=== PATIENT | female | born 2000 | race Caucasian/White ===

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

== ENCOUNTER 2023-05-06 16:20 | Inpatient (IN) ==
--- NOTE | 2023-05-06 16:26 | ED Triage Note ---
Date of Service May 06, 2023 Provider in Triage Author: Papo Whaley A History of Present Illness This patient was briefly evaluated while in triage. An abbreviated physical exam was performed. This patient is a 22-year-old Female who presents to the ED for evaluation of mouth pain. Went to dentist 3 weeks ago to have a tooth pull, and had novocaine injection. Has had issues opening mouth ever since that episode. Could not tolerate removal of the tooth. No fever. Saw PCP today and sent to ER for ct scan. Physical Exam Limited Triage Exam: VITALS: Vitals are noted on the nurse's note and reviewed by myself. Vital sign s stable. GENERAL: Well-developed, well-nourished, white female, who is in no acute distress and resting comfortably. Patient is cooperative with the examination. HEART: Regular rate and rhythm without murmurs gallops or rubs. LUNGS: Clear to auscultation bilaterally without wheezes, rales or rhonchi. No retractions or accessory muscle use. NEURO: Patient was alert and oriented to person place and time. CN II through XII grossly intact. Initial orders for labs and / or imaging were placed and patient was placed in the waiting area until a bed is available. Please see further documentation for the full ED course. MDM / Impression Impression Impression: Abscess of submandibular region, Trismus
--- NOTE | 2023-05-06 16:53 | Emergency Department Note ---
History of Present Illness General Chief complaint: Dental/Oral Stated complaint: NOVACANE IN RT BACK SIDE MOUTH, LOCK JAW Time Seen by Provider: 05/06/23 16:38 History of Present Illness Maximum Pain Intensity: 5 22-year-old female who presents to the emergency department for evaluation of lockjaw. Patient states that she broke her right lower molar a few weeks ago and was evaluated by [facility] for treatment. She states that they recommended extraction. She reports 3 weeks ago she presented to their office and attempted to pull the tooth. She states they numbed her with 4 shots of Novocaine but were unable to get her numb and subsequently unable to pull the tooth. She was placed on antibiotics for presumed infection. She states since the procedure she has been unable to open her jaw at all. She has not been able to eat solid foods for the last 3 weeks, she is tolerating liquids however. She was seen by her PCP last week who placed her on steroids for lockjaw which did help with some swelling underneath the area but once finishing on Saturday the swelling returned. She denies any dental pain when she clenches, fever/chills, nausea/vomiting. Denies difficulty swallowing, sore throat, neck or ear pain. She has not been on any antibiotics for the last 3 weeks. She reports being otherwise healthy without significant past medical history. No allergies to medications. She is up-to-date on her tetanus vaccination. Home Medications Medication Instructions Recorded Confirmed Type albuterol sulfate 90 mcg/actuation 2 puff inhalation Q4H PRN 07/31/21 05/06/23 Rx aerosol inhaler (ProAir HFA) shortness of breath or wheezing #8.5 grams acetaminophen 325 mg capsule 650 mg PO QID PRN Fever Or Pain 01/22/23 05/06/23 History (Tylenol) ibuprofen 200 mg capsule 400 mg PO Q6H PRN Fever Or Pain 01/22/23 05/06/23 History Allergies Allergy/AdvReac Type Severity Reaction Status Date / Time Penicillins Allergy Mild Unknown Verified 05/06/23 15:20 Past Med/Surg History Medical History Asthma Anxiety and depression Migraine, chronic, without aura Surgical History No history of previous surgery Family History Mother Adopted person Other Depression Dyslipidemia Gestational diabetes Hypertension Kidney disease Multiple gestation Social History Smoking Status: Never smoker Do You Dip or Chew Tobacco: No; Hx Alcohol Use: Yes Alcohol Intake Frequency Comment: socially Hx Substance Use: Yes Non-Prescribed Medications: Marijuana Preferred Language: Trinidadian current occupational status: employed Feels Safe at Home: Yes Physical Exam Vital Signs Vital Signs - 24 hr 05/06/23 16:24 Pulse Rate 84 Pulse Rhythm Regular Pulse Strength Normal Respiratory Rate 20 Respiratory Effort / Characteristics Non-Labored Spontaneous Respiratory Depth Normal Respiratory Pattern Regular Blood Pressure 113/73 Blood Pressure Mean 86 Blood Pressure Position Sitting Pulse Oximetry 96 Oxygen Delivery Method Room Air Sepsis Recent Fever Within 48 Hours No Sepsis New/Unexplained Change in Mental Status No Sepsis Action Taken by Nursing No Action Required Constitutional: alert and oriented x3. no acute distress. nontoxic HEENT: normocephalic, atraumatic. normal conjunctiva.PERRLA. EOM's grossly intact. TMs pearly mckeon without effusion. Pt unable to open/close at TMJ. submandibular swelling, no cellulitic changes Neck: neck is supple, nontender. Respiratory: lungs are clear to auscultation without wheezes, rhonchi, or rales bilaterally. equal chest rise. normal respiratory effort, no accessory muscle use. Cardiovascular: normal heart sounds without murmur. regular rate and rhythm. MSK: moves all 4 extremities spontaneously Psych:appropriate mood and affect. Course Administered Medications Discontinued Medications Clindamycin Phosphate (Cleocin/D5w) 900 mg in 50 mls @ 100 mls/hr IV NOW ONE Stop: 05/06/23 18:58 Last Admin: 05/06/23 19:13 Dose: 100 mls/hr Documented By: CRISELDA Sodium Chloride (Nss) 1,000 mls @ 999 mls/hr IV .Q1H1M ONE Stop: 05/06/23 19:50 Last Admin: 05/06/23 19:13 Dose: 999 mls/hr Documented By: CRISELDA Ioversol (Optiray 320 500ml) 88 ml IV ONCE ONE Stop: 05/06/23 17:55 Last Admin: 05/06/23 17:56 Dose: 88 ml Documented By: PREM Ketorolac Tromethamine (Ketorolac Tromethamine 15 Mg/Ml Vial) 15 mg IV NOW STA Stop: 05/06/23 18:15 Last Admin: 05/06/23 18:19 Dose: 15 mg Documented By: CARLOS ALBERTO Medical Decision Making Differential Diagnosis dental infection, dental abscess, TMJ dislocation, lockjaw, muscle spasm, nerve injury as well as other pathologies Laboratory Data Attestation: I reviewed the patient's lab results. 05/06/23 16:59 05/06/23 16:59 Lab Results 05/06/23 Range/Units 16:59 WBC 12.06 H (4.8-10.8) K/ul RBC 4.78 (4.20-5.40) M/uL Hgb 14.3 (12.0-16.0) g/dl Hct 43.0 (37.0-47.0) % MCV 90.0 (80.0-100.0) fL MCH 29.9 (25.0-34.0) pg MCHC 33.3 (32.0-36.0) g/dL RDW Std Deviation 39.4 (36.4-46.3) fL RDW Coeff of [place] 11.9 (11.5-14.5) % Plt Count 252 (130-400) K/uL MPV 10.8 (9.4-12.4) fL Immature Gran % (Auto) 0.4 % Neut % (Auto) 76.0 % Lymph % (Auto) 11.9 % [place] % (Auto) 10.5 % Eos % (Auto) 0.8 % Baso % (Auto) 0.4 % Neut # (Auto) 9.15 H (1.40-6.50) K/uL Lymph # (Auto) 1.44 (1.20-3.40) K/uL [place] # (Auto) 1.27 H (0.11-0.59) K/uL Eos # (Auto) 0.10 (0.00-0.50) K/uL Baso # (Auto) 0.05 (0.00-0.20) K/uL Immature Gran # (Auto) 0.05 (0.01-0.20) K/uL Sodium 134 L (136-145) mmol/L Potassium 4.4 (3.5-5.1) mmol/L Chloride 101 (98-107) mmol/L Carbon Dioxide 26 (21-32) mmol/L Anion Gap 7 (3-11) BUN 11 (6-23) mg/dl Creatinine 0.69 (0.6-1.2) mg/dl Est Cr Clr Drug Dosing 112.3 ml/min Est GFR ( Amer) 143.2 ml/min Est GFR (Non-Af Amer) 123.6 ml/min BUN/Creatinine Ratio 15.9 (10-20) Glucose 94 (70-99(Fasting)) mg/dl Calcium 9.6 (8.6-10.3) mg/dl Total Bilirubin 0.7 (0.2-1.0) mg/dl AST 10 L (13-39) U/L ALT 7 (7-52) U/L Alkaline Phosphatase 78 (34-104) U/L Total Protein 7.8 (6.0-8.3) gm/dl Albumin 4.4 (3.4-5.0) gm/dl Globulin 3.4 (2.5-4.0) gm/dl Albumin/Globulin Ratio 1.3 (0.9-2) Imaging Data Radiologist's Impression: Soft Tissue Neck CT 05/06/23 16:49 CT SCAN OF THE NECK WITH IV CONTRAST CLINICAL HISTORY: Right jaw swelling. COMPARISON STUDY: CT of the neck dated 05/05/2007. TECHNIQUE: Following the IV administration of 88 cc of Optiray 320, CT scan of the soft tissues of the neck was performed from the skull base to the upper chest. Images are reviewed in the axial, sagittal, and coronal planes. IV contrast was administered without complication. A dose lowering technique was utilized adhering to the principles of ALARA. FINDINGS: Dentition: There is a small periapical lucency with overlying cortical breakthrough involving the most posterior right mandibular molar. There are numerous dental caries. There is a multiloculated thick-walled and peripherally enhancing fluid collection identified deep to the right mandibular ramus seen on axial image #183. This measures approximately 4 x 2 x 2 cm, and extends along the inferior aspect of the angle of the mandible. This is typical for abscess, and there is significant surrounding inflammation/cellulitis. This involves the right sublingual space. Pharynx: As detailed above there is a peripherally enhancing fluid collection deep to the right mandibular ramus typical for abscess with surrounding inflammation. There is infiltration of the superior right parapharyngeal fat. The pharyngeal soft tissues are otherwise normal as imaged. The pharyngeal airway is patent. There is no evidence of mass lesion. The vocal cords are symmetric. The left parapharyngeal fat is well maintained. The prevertebral/retropharyngeal soft tissues are within normal limits. The epiglottis is normal. Lymphadenopathy: Prominent right cervical chain lymph nodes are likely reactive. Thyroid: Normal in size and attenuation. Salivary glands: The parotid and submandibular glands are within normal limits. Brain parenchyma: The visualized brain parenchyma at the skull base is normal in appearance. Vascular structures: The carotid arteries and jugular veins are patent bilaterally. Skeletal structures: Imaged portions of the calvarium at the skull base are within normal limits. The cervical spine appears intact. Orbits: The bony orbits are intact. Orbital contents are normal in appearance. Sinuses and mastoids: There is trace mucosal thickening in the right maxillary antrum. The remaining paranasal sinuses are clear. The mastoid air cells are well pneumatized. Lung apices: Visualized apical lung parenchyma is clear. IMPRESSION: 1. Periodontal disease as above noting a periapical lucency with cortical breakthrough involving the most posterior right mandibular molar. 2. There is a large multiloculated abscess deep to the right mandibular ramus as detailed above typical for abscess. This extends inferiorly along the right mandibular angle with evidence of surrounding cellulitis and infiltration of the right sublingual and parapharyngeal fat. This is likely periodontal in origin. 3. The airway is patent. 4. Prominent right cervical chain lymph nodes are likely reactive. 5. Follow-up with dentistry is recommended. ACT 112: Negative or not required by law. Electronically signed by: Norman Dunlap M.D. 05/06/2023 6:16 PM MDM Narrative 22-year-old female presents to the emergency department for evaluation of right lower dental pain and lockjaw. Reviewed pertinent visits and past medical history performed. Vital signs in ED stable, afebrile. Patient was seen and evaluated as above. She reports attempted dental extraction 3 weeks ago by [facility]. She states since the incident she has been unable to open her jaw. On exam, patient is nontoxic-appearing in no acute distress. There is obvious trismus and tenderness along the right jaw. Submandibular swelling noted. No evidence of facial cellulitis. No neck stiffness/meningitic signs. Given presentation, IV access was established and labs and imaging were obtained. CBC demonstrates mild leukocytosis of 12 with left shift. No acute anemia. CMP without significant electrolyte abnormalities. Renal function within normal limits. LFTs unremarkable. CT of the soft tissue neck was performed and demonstrates a large multiloculated abscess at the right mandibular ramus that extends inferiorly along the mandibular angle with surrounding cellulitis and infiltration of the right sublingual and parapharyngeal fat. Patient was medicated with IV Toradol for pain and hydrated with 1 L of IV fluids. Case was discussed with on-call oral maxillofacial surgeon, Dr. Mendoza who came to evaluate patient at bedside personally. Please see his documentation for further details. Dr. Mendoza recommended admission to the hospital for IV antibiotics for dental abscess as well as conservative measures for trismus. Plans to follow patient as inpatient and will likely perform I&D when her trismus improves. All exam findings and test results as well as recommendations from Dr. Mendoza were relayed to the patient. She was agreeable to admission for IV antibiotics and further care. Case was discussed with hospitalist YOLANDA, [facility] Schafer, who graciously accepted patient to his service for continued care. Patient reports a penicillin allergy with "throat closing and wheezing." Patient was therefore ordered IV clindamycin empirically for infection coverage. She did not require anything additional for pain. She was admitted in stable condition. Impression & Plan Abscess of submandibular region, Trismus Discharge Plan Visit Data Chief Complaint: Dental/Oral Stated Complaint: NOVACANE IN RT BACK SIDE MOUTH, LOCK JAW ED Provider: Bryan Khalil ED Midlevel Provider: Chrystal Moise Discharge Problem: Abscess of submandibular region, Trismus Patient Disposition: Admitted As Inpatient Prescriptions Prescriptions: No Action albuterol sulfate [ProAir HFA] 90 mcg/actuation HFA aerosol inhaler 2 puff inhalation Q4H PRN (Reason: shortness of breath or wheezing) Qty: 8.5 0RF acetaminophen [Tylenol] 325 mg capsule 650 mg PO QID PRN (Reason: Fever Or Pain) ibuprofen 200 mg capsule 400 mg PO Q6H PRN (Reason: Fever Or Pain) Referrals Referrals: Michelle Cantu MD [Physician] -
[2023-05-06 17:15] LABS: Basophils # (auto) 0.05 K/uL (0.00-0.20); Basophils % (auto) 0.4 %; Eosinophils % (auto) 0.8 %; Hemoglobin 14.3 g/dl (12.0-16.0); Immature Granulocytes # (auto) 0.05 K/uL (0.01-0.20); Immature Granulocytes % (auto) 0.4 %; Lymphocytes # (auto) 1.44 K/uL (1.20-3.40); Lymphocytes % (auto) 11.9 %; Mean Corpuscular Hemoglobin 29.9 pg (25.0-34.0); Mean Corpuscular Hgb Conc 33.3 g/dL (32.0-36.0); Mean Platelet Volume 10.8 fL (9.4-12.4); Monocytes # (auto) 1.27 K/uL (0.11-0.59); Monocytes % (auto) 10.5 %; Neutrophils # (auto) 9.15 K/uL (1.40-6.50); Platelet Count 252 K/uL (130-400); RDW Coefficient of Variation 11.9 % (11.5-14.5); RDW Standard Deviation 39.4 fL (36.4-46.3); Red Blood Count 4.78 M/uL (4.20-5.40); White Blood Count 12.06 K/ul (4.8-10.8)
[2023-05-06 17:34] LABS: Albumin Globulin Ratio 1.3 (0.9-2); Albumin Level 4.4 gm/dl (3.4-5.0); BUN Creatinine Ratio 15.9 (10-20); Bilirubin,Total 0.7 mg/dl (0.2-1.0); Calcium 9.6 mg/dl (8.6-10.3); Creatinine Clr Calc Pharmacy 112.3 ml/min; Est GFR (African American) 143.2 ml/min; Est GFR (Non-African American) 123.6 ml/min; Globulin 3.4 gm/dl (2.5-4.0); Potassium 4.4 mmol/L (3.5-5.1); Total Protein 7.8 gm/dl (6.0-8.3)
[2023-05-06] MEDS: OPTIRAY 320 500ml IV ONE (17:56)
--- NOTE | 2023-05-06 18:18 | CT Scan Report ---
CT SCAN OF THE NECK WITH IV CONTRAST CLINICAL HISTORY: Right jaw swelling. COMPARISON STUDY: CT of the neck dated 05/05/2007. TECHNIQUE: Following the IV administration of 88 cc of Optiray 320, CT scan of the soft tissues of th e neck was performed from the skull base to the upper chest. Images are reviewed in the axial, sagitt al, and coronal planes. IV contrast was administered without complication. A dose lowering techniqu e was utilized adhering to the principles of ALARA. FINDINGS: Dentition: There is a small periapical lucency with overlying cortical breakthrough involving the mos t posterior right mandibular molar. There are numerous dental caries. There is a multiloculated thick -walled and peripherally enhancing fluid collection identified deep to the right mandibular ramus see n on axial image #183. This measures approximately 4 x 2 x 2 cm, and extends along the inferior aspec t of the angle of the mandible. This is typical for abscess, and there is significant surrounding inf lammation/cellulitis. This involves the right sublingual space. Pharynx: As detailed above there is a peripherally enhancing fluid collection deep to the right bianca bular ramus typical for abscess with surrounding inflammation. There is infiltration of the superior right parapharyngeal fat. The pharyngeal soft tissues are otherwise normal as imaged. The pharyngeal airway is patent. There is no evidence of mass lesion. The vocal cords are symmetric. The left paraph aryngeal fat is well maintained. The prevertebral/retropharyngeal soft tissues are within normal limi ts. The epiglottis is normal. Lymphadenopathy: Prominent right cervical chain lymph nodes are likely reactive. Thyroid: Normal in size and attenuation. Salivary glands: The parotid and submandibular glands are within normal limits. Brain parenchyma: The visualized brain parenchyma at the skull base is normal in appearance. Vascular structures: The carotid arteries and jugular veins are patent bilaterally. Skeletal structures: Imaged portions of the calvarium at the skull base are within normal limits. The cervical spine appears intact. Orbits: The bony orbits are intact. Orbital contents are normal in appearance. Sinuses and mastoids: There is trace mucosal thickening in the right maxillary antrum. The remaining paranasal sinuses are clear. The mastoid air cells are well pneumatized. Lung apices: Visualized apical lung parenchyma is clear. IMPRESSION: 1. Periodontal disease as above noting a periapical lucency with cortical breakthrough involving the most posterior right mandibular molar. 2. There is a large multiloculated abscess deep to the right mandibular ramus as detailed above typic al for abscess. This extends inferiorly along the right mandibular angle with evidence of surrounding cellulitis and infiltration of the right sublingual and parapharyngeal fat. This is likely periodont al in origin. 3. The airway is patent. 4. Prominent right cervical chain lymph nodes are likely reactive. 5. Follow-up with dentistry is recommended. ACT 112: Negative or not required by law. Electronically signed by: Norman Dunlap M.D. 05/06/2023 6:16 PM
[2023-05-06] MEDS: KETOROLAC TROMETHAMINE 15 MG/ML VIAL IV STA (18:19)
--- NOTE | 2023-05-06 18:38 | Oral/Maxillofacial Consult ---
Date of Consultation May 06, 2023 Assessment & Plan (1) Abscess of submandibular region: (2) Trismus: (3) Periapical abscess of tooth with fistula: History of Present Illness History of Present Illness Oral Maxillofacial Surgery Exam Present Complaint: I have pain/swelling/drainage from my lower right infected tooth # 31 teeth. Symptoms have been ongoing for a 3 weeks 4 injections to gain anaesthesia to the lower jaw can in its self cause trismus with the fractured tooth this could also be a etiology of the current infection. 22-year-old female who presents to the emergency department for evaluation of lockjaw. Patient states that she broke her right lower molar a few weeks ago and was evaluated by [facility] for treatment. She states that they recommended extraction. She reports 3 weeks ago she presented to their office and attempted to pull the tooth. She states they numbed her with 4 shots of Novocaine but were unable to get her numb and subsequently unable to pull the tooth. She was placed on antibiotics for presumed infection. She states since the procedure she has been unable to open her jaw at all. She has not been able to eat solid foods for the last 3 weeks, she is tolerating liquids however. She was seen by her PCP last week who placed her on steroids for lockjaw which did help with some swelling underneath the area but once finishing on Saturday the swelling returned. She denies any dental pain when she clenches, fever/chills, nausea/vomiting. Denies difficulty swallowing, sore throat, neck or ear pain. She has not been on any antibiotics for the last 3 weeks. She reports being otherwise healthy without significant past medical history. allergies to amoxicillin and penicillin. Oral Exam: Finding--Can only open less the 5 mm significant trismus for 3 weeks Overall oral exam is in good repair Imaging: CT SCAN OF THE NECK WITH IV CONTRAST CLINICAL HISTORY: Right jaw swelling. FINDINGS: Dentition: There is a small periapical lucency with overlying cortical breakthrough involving the most posterior right mandibular molar. There are numerous dental caries. There is a multiloculated thick-walled and peripherally enhancing fluid collection identified deep to the right mandibular ramus seen on axial image #183. This measures approximately 4 x 2 x 2 cm, and extends along the inferior aspect of the angle of the mandible. This is typical for abscess, and there is significant surrounding inflammation/cellulitis. This involves the right sublingual space. Pharynx: As detailed above there is a peripherally enhancing fluid collection deep to the right mandibular ramus typical for abscess with surrounding inflammation. There is infiltration of the superior right parapharyngeal fat. The pharyngeal soft tissues are otherwise normal as imaged. The pharyngeal airway is patent. There is no evidence of mass lesion. The vocal cords are symmetric. The left parapharyngeal fat is well maintained. The prevertebral/retropharyngeal soft tissues are within normal limits. The epiglottis is normal. Lymphadenopathy: Prominent right cervical chain lymph nodes are likely reactive. Thyroid: Normal in size and attenuation. Salivary glands: The parotid and submandibular glands are within normal limits. Brain parenchyma: The visualized brain parenchyma at the skull base is normal in appearance. Vascular structures: The carotid arteries and jugular veins are patent bilaterally. Skeletal structures: Imaged portions of the calvarium at the skull base are within normal limits. The cervical spine appears intact. Orbits: The bony orbits are intact. Orbital contents are normal in appearance. Sinuses and mastoids: There is trace mucosal thickening in the right maxillary antrum. The remaining paranasal sinuses are clear. The mastoid air cells are well pneumatized. Lung apices: Visualized apical lung parenchyma is clear. IMPRESSION: 1. Periodontal disease as above noting a periapical lucency with cortical breakthrough involving the most posterior right mandibular molar. 2. There is a large multiloculated abscess deep to the right mandibular ramus as detailed above typical for abscess. This extends inferiorly along the right mandibular angle with evidence of surrounding cellulitis and infiltration of the right sublingual and parapharyngeal fat. This is likely periodontal in origin. 3. The airway is patent. 4. Prominent right cervical chain lymph nodes are likely reactive. 5. Follow-up with dentistry is recommended. Soft tissue: Difficult to exam but the floor of the mouth, tongue w/o pathology Not able to determine secondary to limited opening--hard/soft palate, posterior pharyngeal area all Significant right angle, submandibular swelling very painful to touch. Oral Care: Overall oral care is good Occlusion: Class I TMJ exam: Not able to exam - trismus Periodontal exam: Healthy gingival tissue without evidence of periodontal pathology. Head/Neck exam: Neck is supple but there is significant swelling right angle of the jaw. ROM is limited secondary to the jaw swelling. Able to extend and flex neck w/o difficulty, no airway issues, no evidence of sleep apnea. Treatment Plan: Need to admit for IV therapy suggest Clinda with possible Bactrim Fluid management. Heat and massage to right angle of the Jaw. Set up with general anesthesia in hospital for I and D when more fluctuance and oral opening improved. I reviewed the treatment plan and consent with the patient Time was given for questions regarding the surgery, risks and post op care. Discussed alternative to treatment--procedure as planned, Do not do surgery Risks discussed: Bleeding,Pain,swelling,infection, dry socket, delayed healing, nerve injury to face,lips,tongue,chin area which could be permanent (rare). TMJ, jaw stiffness, change in bite (rare), ear pain (referred). Sinus problems like fistula or infection. Need to leave a small root fragment in place to avoid injury to nerve or sinus. Relationship of wisdom teeth to nerve/sinus and risk of jaw fracture. Scaring and need for additional drainage Home care reviewed: tooth brushing, rinsing, follow up care with Dr Mendoza. diet=[id number] dental. Discussed activity level, driving/work while on Rx pain Meds. PLAN: SURGERY ONCE MORE FLUCTUANCE DEVELOPS HOPEFULLY IN A FEW DAYS WILL NEED EXTRAORAL i & d WITH EXTRACTION OF # 31 IV ANTIBIOTICS AND HEAT TO PROMOTE LOCALIZATION OF THE DEEP INFECTION Allergies Allergy/AdvReac Type Severity Reaction Status Date / Time Penicillins Allergy Mild Unknown Verified 05/06/23 15:20 Home Medications Medication Instructions Recorded Confirmed Type albuterol sulfate 90 mcg/actuation 2 puff inhalation Q4H PRN 07/31/21 05/06/23 Rx aerosol inhaler (ProAir HFA) shortness of breath or wheezing #8.5 grams acetaminophen 325 mg capsule 650 mg PO QID PRN Fever Or Pain 01/22/23 05/06/23 History (Tylenol) ibuprofen 200 mg capsule 400 mg PO Q6H PRN Fever Or Pain 01/22/23 05/06/23 History Patient History Medical History Asthma Anxiety and depression Migraine, chronic, without aura Surgical History No history of previous surgery Family History Mother Adopted person Other Depression Dyslipidemia Gestational diabetes Hypertension Kidney disease Multiple gestation Social History Smoking Status: Current some day smoker Tobacco Type: Cigarettes Do You Dip or Chew Tobacco: No; Hx Alcohol Use: Yes Alcohol type: beer, wine and hard liquor Alcohol Intake Frequency Comment: socially Hx Substance Use: Yes Non-Prescribed Medications: Marijuana Last Used Substance: Days (ago) Preferred Language: Malay 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 Current Living Situation: Family current occupational status: employed Feels Safe at Home: Yes Safety Concerns: Feels Safe At This Time Results & Data Vital Signs (Past 12 Hours) Vital Signs Pulse Resp BP Pulse Ox O2 Del Method 05/06/23 16:24 84 20 113/73 96 Room Air PG Care Time/CCT Total # of Minutes Spent Total Time Spent with Patient: Total time spent is greater than 50% in coordination of care (as documented) at patient's floor/unit and/or counseling patient: Coding Level of Care Code 15394 IN/OBS CONSULT LVL 2,35M Diagnoses Abscess of submandibular region K12.2 Trismus R25.2 Periapical abscess of tooth with fistula K04.6
--- NOTE | 2023-05-06 18:47 | History & Physical Report ---
Date of Service May 06, 2023 Assessment & Plan (1) Abscess of submandibular region: Plan: Worsening right mandibular pain and difficulty opening jaw x 3 weeks Patient had procedure at [facility] 3 weeks ago to have her right mandibular molar (tooth #31) removed, however it was unable to be extracted; discharged on a course of azithromycin Mild leukocytosis at 12.06 on arrival; however, patient recently completed a steroid taper prescribed by PCP; finished on 05/[address] revealed large multi loculated abscess deep to the right mandibular ramus; airway patent; prominent right cervical chain lymphadenopathy Hx of PCN allergy (hives, severe itching); patient also reports she had a similar reaction when given a cephalosporin Clindamycin 900 mg IV given in the ED Continue clindamycin 600 mg IV q8h; consider adding Bactrim (MRSA swab ordered, pending) Heat application and gentle jaw massage as needed Acetaminophen 650 mg p.o. q4h as needed for pain 1-6 Toradol 15 mg IV q6h as needed for pain 7-10 Otolaryngology consulted; plan is to give IV antibiotics, and set up OR for I&D under general anesthesia A.m. CBC, BMP (2) Trismus: Plan: Patient is unable to open mouth greater than 5 mm Full liquid diet, advance diet as tolerated; easy to chew meals (3) Asthma: Plan: Albuterol inhaler as needed Plan Disposition: Obs [facility] Full code Full liquid diet and advance as tolerated; easy to chew food; protein shakes VTE PPx: SCDs, encourage ambulation (hold chemical DVT PPx pending I&D) History of Present Illness Chief Complaint: Severe dental pain/trismus Primary Care Provider: Alice Lewis MD Daksha is a 22-year-old female with PMH of asthma, dyspareunia, anxiety and depression, and chronic migraine without aura. She presented for severe dental pain and difficulty opening her jaw x 3 weeks. Patient had a procedure at [facility] 3 weeks ago to have a tooth pulled; however, the tooth was unable to be removed despite 4 injections of Novocain. She was sent home on a course of azithromycin. Patient broke the tooth (right mandibular molar; tooth #31) approximately 2 years ago; however, she reports that she does not like going to the dentist, and has been avoiding having it pulled. The right mandibular pain and difficulty opening her jaw began the day after procedure 3 weeks ago. She rates her pain 4/10 at present; 7/10 at worst. Pain radiates down her right neck, and is tender to palpation. She also reports that she has sharp intermittent pain that radiates to her ear upon swallowing and turning her head. History of a right ruptured eardrum a couple months ago. The swelling in her right neck has gotten worse this past week. She has been taking 800 mg of ibuprofen q6h as needed for pain. No other regular medications on a daily basis. Patient has been tolerating liquids, but has had difficulty with solids; she reports she has been eating soup and yogurt. She denies recent injuries to the head/neck. Patient endorses social alcohol use with the last being on Thursday 05/04. She also reports that she vapes, and occasionally uses marijuana; no other recreational drug use or tobacco use. Patient notes that she has a penicillin allergy; her family is allergic, and she notes that she has had wheezing, hives, and itchiness and given penicillins/cephalosporins in the past. Patient's vitals are stable at time of admission. ED course: Toradol 15 mg IV Clindamycin 900 mg IV ROS: Patient endorses right mandibular pain, swelling at the right mandible, intermittent right ear pain with swallowing, nausea, and difficulty fully opening her jaw. Patient denies fever, chills, sweats, fainting, changes in vision/hearing/taste/smell, neck pain, throat swelling/closing, chest pain, SOB, abdominal pain, vomiting, diarrhea, dysuria, burning with urination, or numbness or tingling going down the arms or legs. Allergies Allergy/AdvReac Type Severity Reaction Status Date / Time Penicillins Allergy Mild Unknown Verified 05/06/23 15:20 aspartame AdvReac Unknown Migraine Verified 05/07/23 19:16 Home Medications Medication Instructions Recorded Confirmed Type albuterol sulfate 90 mcg/actuation 2 puff inhalation Q4H PRN 07/31/21 05/06/23 Rx aerosol inhaler (ProAir HFA) shortness of breath or wheezing #8.5 grams acetaminophen 325 mg capsule 650 mg PO QID PRN Fever Or Pain 01/22/23 05/06/23 History (Tylenol) ibuprofen 200 mg capsule 400 mg PO Q6H PRN Fever Or Pain 01/22/23 05/06/23 History acetaminophen 500 mg tablet 1,000 mg (2 x 500 mg) PO Q8H PRN 05/09/23 Rx (Tylenol Extra Strength) pain #30 tabs cefdinir 300 mg capsule 300 mg PO BID #12 caps 05/09/23 Rx epinephrine 0.3 mg/0.3 mL 0.3 mg (0.3 mL) IM UD PRN 05/09/23 Rx injection, auto-injector (EpiPen anaphylaxis #2 ea [id number]) hydrocodone 5 mg-acetaminophen 325 1 tab PO Q4H PRN pain #14 tabs 05/09/23 Rx mg tablet metronidazole 500 mg tablet 500 mg PO Q8H 7 days #21 tabs 05/09/23 Rx ondansetron HCl 8 mg tablet 8 mg PO Q8H PRN nausea and 05/09/23 Rx vomiting #10 tabs phenol 1.4 % mucosal aerosol spray 1 spray MT Q2H PRN sore throat 05/09/23 Rx (Sore Throat (phenol)) #177 mL Past Med/Surg History Medical History (Updated 05/08/23 @ 12:11 by Samuel Mccarthy MD) Encounter for pre-operative examination Asthma Anxiety and depression Migraine, chronic, without aura Surgical History No history of previous surgery Family History Mother Adopted person Other Depression Dyslipidemia Gestational diabetes Hypertension Kidney disease Multiple gestation Social History Smoking Status: Current some day smoker Tobacco Type: Cigarettes Do You Dip or Chew Tobacco: No; Hx Alcohol Use: Yes Alcohol type: beer, wine and hard liquor Alcohol Intake Frequency Comment: socially Hx Substance Use: Yes Non-Prescribed Medications: Marijuana Last Used Substance: Days (ago) Preferred Language: [place] Communication Ability: Effective 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 Current Living Situation: Family current occupational status: employed Feels Safe at Home: Yes Assistive Devices: None Review of Systems Review of Systems: See HPI above Physical Exam Physical Exam: General: no acute distress; pleasant affect; anxious; non-toxic appearing; well- nourished; cooperative HEENT: normocephalic, atraumatic; no scleral icterus; PERRLA w/ EOMs intact; patient has difficulty opening her mouth greater than 5 mm (poor visualization of right mandibular molar); moist mucus membrane; vision and hearing grossly intact Neck: Right cervical chain lymphadenopathy; swelling of the right mandible is TTP, nonerythematous; trachea midline Skin: warm, dry without signs of tenting; no cyanosis; no rashes, bruising, lesions, or erythema noted CV: chest wall NTP; RRR; S1/S2 normal; no murmurs/rubs/gallops; pulses intact and symmetric at radial, DP, and PT Lungs: no acute respiratory distress; symmetrical chest wall expansion; clear breath sounds across all lung cervantes w/o adventitious sounds; no wheezing ABD: Soft, NTP; BS present; no rebound/guarding; no distention MSK: no tics or fasciculations; no edema noted in the LEs b/l, nonerythematous Neuro: A&Ox3; normal mood and affect; fluent speech; no focal deficits; sensation grossly intact in the LEs b/l Results & Data Results & Data Vital Signs (Past 12 Hours) Vital Signs Pulse Resp BP Pulse Ox O2 Del Method 05/06/23 16:24 84 20 113/73 96 Room Air Laboratory Results Abnormal lab results 05/06/23 Range/Units 16:59 WBC 12.06 H (4.8-10.8) K/ul Neut # (Auto) 9.15 H (1.40-6.50) K/uL Hughes # (Auto) 1.27 H (0.11-0.59) K/uL Sodium 134 L (136-145) mmol/L AST 10 L (13-39) U/L Diagnostic Findings Soft Tissue Neck CT 05/06/23 16:49 CT SCAN OF THE NECK WITH IV CONTRAST CLINICAL HISTORY: Right jaw swelling. COMPARISON STUDY: CT of the neck dated 05/05/2007. TECHNIQUE: Following the IV administration of 88 cc of Optiray 320, CT scan of the soft tissues of the neck was performed from the skull base to the upper chest. Images are reviewed in the axial, sagittal, and coronal planes. IV contrast was administered without complication. A dose lowering technique was utilized adhering to the principles of ALARA. FINDINGS: Dentition: There is a small periapical lucency with overlying cortical breakthrough involving the most posterior right mandibular molar. There are numerous dental caries. There is a multiloculated thick-walled and peripherally enhancing fluid collection identified deep to the right mandibular ramus seen on axial image #183. This measures approximately 4 x 2 x 2 cm, and extends along the inferior aspect of the angle of the mandible. This is typical for abscess, and there is significant surrounding inflammation/cellulitis. This involves the right sublingual space. Pharynx: As detailed above there is a peripherally enhancing fluid collection deep to the right mandibular ramus typical for abscess with surrounding inflammation. There is infiltration of the superior right parapharyngeal fat. The pharyngeal soft tissues are otherwise normal as imaged. The pharyngeal airway is patent. There is no evidence of mass lesion. The vocal cords are symmetric. The left parapharyngeal fat is well maintained. The prevertebral/retropharyngeal soft tissues are within normal limits. The epiglottis is normal. Lymphadenopathy: Prominent right cervical chain lymph nodes are likely reactive. Thyroid: Normal in size and attenuation. Salivary glands: The parotid and submandibular glands are within normal limits. Brain parenchyma: The visualized brain parenchyma at the skull base is normal in appearance. Vascular structures: The carotid arteries and jugular veins are patent bilaterally. Skeletal structures: Imaged portions of the calvarium at the skull base are within normal limits. The cervical spine appears intact. Orbits: The bony orbits are intact. Orbital contents are normal in appearance. Sinuses and mastoids: There is trace mucosal thickening in the right maxillary antrum. The remaining paranasal sinuses are clear. The mastoid air cells are well pneumatized. Lung apices: Visualized apical lung parenchyma is clear. IMPRESSION: 1. Periodontal disease as above noting a periapical lucency with cortical breakthrough involving the most posterior right mandibular molar. 2. There is a large multiloculated abscess deep to the right mandibular ramus as detailed above typical for abscess. This extends inferiorly along the right mandibular angle with evidence of surrounding cellulitis and infiltration of the right sublingual and parapharyngeal fat. This is likely periodontal in origin. 3. The airway is patent. 4. Prominent right cervical chain lymph nodes are likely reactive. 5. Follow-up with dentistry is recommended. ACT 112: Negative or not required by law. Electronically signed by: Norman Dunlap M.D. 05/06/2023 6:16 PM Code Status & VTE Plan Code Status Full code VTE Prophylaxis Plan VTE Prophylaxis will be ordered: Yes Supervising Physician Co-Signing Physician Notes I personally saw and examined the patient. I independently reviewed the labs, imaging, problem list, medication list, past medical history. I verified all howard points and agree with Boom Schafer PA-C with the following exceptions and/or additions: 22 year old female presents to the ER with right mandibular pain and swelling following right tooth attempted extraction 3 weeks ago. Previously on azithromycin due to penicillin allergy. Progressively worsening right mandibular swelling, pain and redness over the last week. O/E HS regular rate, regular rhythm, no murmurs, Chest CTAB, Right mandibular swelling, pain and overlying erythema A/P Abscess of submandibular region - suspected from periodontal disease. IV clindamycin (penicillin allergy). Consult ENT. NPO after midnight. PG Care Time/CCT Total # of Minutes Spent Total Time Spent with Patient: Total time spent is greater than 50% in coordination of care (as documented) at patient's floor/unit and/or counseling patient: [place] [address] INT INP/OBS CARE 2/55MIN Patient Type New Medical Decision Making Low Complexity Diagnoses Abscess of submandibular region K12.2 Trismus R25.2 Asthma J45.909
[2023-05-06] MEDS: SODIUM CHLORIDE 0.9% 1,000 ML IV ONE (19:13)
[2023-05-06] MEDS: CLINDAMYCIN/D5W 900 MG/50 ML BAG IV ONE (19:13)
[2023-05-06] MEDS ORDERED: ALBUTEROL HFA 8 GM INHALER INH PRN (21:09)
[2023-05-06] MEDS ORDERED: ONDANSETRON INJ 2 MG/ML 2 ML VIAL IV PRN (21:09)
[2023-05-07] MEDS: KETOROLAC TROMETHAMINE 15 MG/ML VIAL IV PRN (01:08)
[2023-05-07] MEDS: CLINDAMYCIN/D5W 600 MG/50 ML BAG IV SCH (03:17)
[2023-05-07 07:43] LABS: Basophils # (auto) 0.06 K/uL (0.00-0.20); Basophils % (auto) 0.7 %; Eosinophils # (auto) 0.14 K/uL (0.00-0.50); Eosinophils % (auto) 1.5 %; Hematocrit (blood only) 38.7 % (37.0-47.0); Hemoglobin 12.8 g/dl (12.0-16.0); Immature Granulocytes # (auto) 0.03 K/uL (0.01-0.20); Immature Granulocytes % (auto) 0.3 %; Lymphocytes # (auto) 2.08 K/uL (1.20-3.40); Lymphocytes % (auto) 22.8 %; Mean Corpuscular Hemoglobin 29.7 pg (25.0-34.0); Mean Corpuscular Hgb Conc 33.1 g/dL (32.0-36.0); Mean Corpuscular Volume 89.8 fL (80.0-100.0); Mean Platelet Volume 10.9 fL (9.4-12.4); Monocytes # (auto) 1.29 K/uL (0.11-0.59); Monocytes % (auto) 14.1 %; Neutrophils # (auto) 5.53 K/uL (1.40-6.50); Neutrophils % (auto) 60.6 %; Platelet Count 228 K/uL (130-400); RDW Coefficient of Variation 11.9 % (11.5-14.5); Red Blood Count 4.31 M/uL (4.20-5.40); White Blood Count 9.13 K/ul (4.8-10.8)
[2023-05-07 08:33] LABS: BUN Creatinine Ratio 18.3 (10-20); Calcium 9.2 mg/dl (8.6-10.3); Creatinine Clr Calc Pharmacy 131.6 ml/min; Est GFR (Non-African American) 129.4 ml/min; Potassium 4.4 mmol/L (3.5-5.1)
[2023-05-07] MEDS: ACETAMINOPHEN 325 MG TAB PO PRN (12:10)
--- NOTE | 2023-05-07 16:30 | Hospitalist Progress Note ---
Date of Service May 07, 2023 Assessment & Plan (1) Abscess of submandibular region: Plan: Worsening right mandibular pain and difficulty opening jaw x 3 weeks Patient had procedure at [facility] [place] 3 weeks ago to have her right mandibular molar (tooth #31) removed, however it was unable to be extracted; discharged on a course of azithromycin Mild leukocytosis at 12.06 on arrival; however, patient recently completed a steroid taper prescribed by PCP; finished on 05/04. Leukocytosis now resolved Soft tissue neck CT revealed large multi loculated abscess deep to the right mandibular ramus; airway patent; prominent right cervical chain lymphadenopathy Hx of PCN allergy (hives, severe itching); patient also reports she had a similar reaction when given a cephalosporin Seen by OMFS here who plans on doing incision and drainage after a couple of days of IV antibiotics-plan is now for 05/08-n.p.o. after midnight -MRSA swab negative therefore no additional antibiotic coverage needed -Continue clindamycin 600 mg IV 3 times daily -Heat application and gentle jaw massage as needed -Acetaminophen 650 mg p.o. q4h as needed for pain 1-6 -Toradol 15 mg IV q6h as needed for pain 7-10 -OMFS added on Decadron for improvement in swelling and trismus -Follow CBC, BMP in the morning (2) Trismus: Plan: Patient is unable to open mouth greater than 5 mm Full liquid diet, except n.p.o. after midnight for surgery tomorrow This should improve after improvement in infection (3) Asthma: Plan: Albuterol inhaler as needed-no acute issues Plan Disposition: Continued stay VTE PPx: SCDs, encourage ambulation (hold chemical DVT PPx pending I&D) Discussed her care with her mother and friend at the bedside Admission and Anticipated Discharge Date Admission Date: May 06, 2023 Subjective Patient continues to have fairly significant right-sided jaw pain and still feels unable to open her mouth much at all and has difficulty eating. Does not feel improved since admission. She is questioning when she will have the surgical drainage. I asked the oral surgeon to address these questions when he sees her today. Physical Exam Constitutional: WD/WN, vitals as above Eyes: + anicteric sclerae ENMT: Positive tenderness to palpation over right mandible with swelling palpable and visible, no overlying erythema Positive trismus but is able to speak clearly, no hot potato voice Unable to visualize buccal mucosa Will due to trismus Neck: + abnormal visual inspection (Mild swell ing right side of neck) Respiratory: normal respiratory effort, lungs clear to auscultation Cardiovascular: RRR, no murmur, no edema Chest (Breasts): Chest: normal inspection of chest Gastrointestinal (Abdomen): normal bowel sounds, soft, nontender, no hepatosplenomegaly Musculoskeletal: Extremities: extremities normal to inspection; no cyanosis and no clubbing Skin: no rashes, warm and dry Neurologic: moves all extremities and awake; no focal motor deficits Psychiatric: Orientation: alert and oriented x 3 Affect: + irritable affect Lymphatic: no lymphedema Results & Data Results & Data Vital Signs (Past 12 Hours) Vital Signs Temp Pulse Resp BP Pulse Ox O2 Del Method 05/07/23 15:35 36.9 C 76 16 106/67 97 Room Air 05/07/23 07:57 36.6 C 78 16 112/72 97 Room Air Laboratory Results CBC, MRSA swab, BMP reviewed PG Care Time/CCT Total # of Minutes Spent Total Time Spent with Patient: Total time spent is greater than 50% in coordination of care (as documented) at patient's floor/unit and/or counseling patient: Coding Level of Care Code 85681 SUB INP/OBS CARE 2/35MIN Diagnoses Abscess of submandibular region K12.2 Trismus R25.2 Asthma J45.909
--- NOTE | 2023-05-07 18:58 | Oral/Maxillofacial Progress Nt ---
Date of Service May 07, 2023 Assessment & Plan Admission and Anticipated Discharge Date Admission Date: May 06, 2023 Subjective still swollen and limited oral opening Daksha is still swollen however there is a slight improvement in her oral opening. She has point tenderness angle of the mandible. This corresponds to the area of fluid collection. My plan is to keep her NPO tonight at 12 Midnight and re evaluate in the morning. If there is more localization I will plan I&D and extraction of the # 31 tooth tomorrow afternoon. For now --heat, IV antibiotics,NPO and jaw exercise. I will add steroids Decadron 6 mg q 6 hrs Results & Data Vital Signs (Past 12 Hours) Vital Signs Temp Pulse Resp BP Pulse Ox O2 Del Method 05/07/23 15:35 36.9 C 76 16 106/67 97 Room Air 05/07/23 07:57 36.6 C 78 16 112/72 97 Room Air PG Care Time/CCT Total # of Minutes Spent Total Time Spent with Patient: Total time spent is greater than 50% in coordination of care (as documented) at patient's floor/unit and/or counseling patient: Coding Level of Care Code 79732 SUB INP/OBS CARE 1/25MIN
[2023-05-07] MEDS: dexAMETHasone 6 MG in SYRINGE 0 ML IV SCH (20:15)
[2023-05-08 07:46] LABS: Hematocrit (blood only) 39.1 % (37.0-47.0); Hemoglobin 13.7 g/dl (12.0-16.0); Mean Corpuscular Hemoglobin 30.4 pg (25.0-34.0); Mean Corpuscular Volume 86.7 fL (80.0-100.0); Platelet Count 250 K/uL (130-400); RDW Coefficient of Variation 11.6 % (11.5-14.5); RDW Standard Deviation 37.1 fL (36.4-46.3); Red Blood Count 4.51 M/uL (4.20-5.40); White Blood Count 9.24 K/ul (4.8-10.8)
[2023-05-08 07:54] LABS: BUN Creatinine Ratio 21.7 (10-20); Calcium 9.9 mg/dl (8.6-10.3); Creatinine Clr Calc Pharmacy 131.6 ml/min; Est GFR (Non-African American) 129.4 ml/min; Potassium 4.6 mmol/L (3.5-5.1)
[2023-05-08 08:18] LABS: Basophils # (auto) 0.01 K/uL (0.00-0.20); Basophils % (auto) 0.1 %; Immature Granulocytes # (auto) 0.04 K/uL (0.01-0.20); Immature Granulocytes % (auto) 0.4 %; Lymphocytes # (auto) 0.75 K/uL (1.20-3.40); Lymphocytes % (auto) 8.1 %; Monocytes % (auto) 1.1 %; Neutrophils # (auto) 8.34 K/uL (1.40-6.50); Neutrophils % (auto) 90.3 %
--- NOTE | 2023-05-08 10:19 | Oral/Maxillofacial Progress Nt ---
Date of Service May 08, 2023 Assessment & Plan Admission and Anticipated Discharge Date Admission Date: May 06, 2023 Subjective Daksha is able to open her mouth slightly more and the swelling has localized to the medial side of the lower jaw and submandibular area. I will plan I&D this afternoon with extraction of # 31. I will be able to get a better examination of the mouth and oral cavity once we get her sedated. OR today Consent signed reviewed with Daksha and her mother Results & Data Vital Signs (Past 12 Hours) Vital Signs Temp Pulse Resp BP Pulse Ox O2 Del Method 05/08/23 07:18 36.7 C 80 15 109/69 97 Room Air PG Care Time/CCT Total # of Minutes Spent Total Time Spent with Patient: Total time spent is greater than 50% in coordination of care (as documented) at patient's floor/unit and/or counseling patient: Coding Level of Care Code None
--- NOTE | 2023-05-08 12:11 | Anesthesiology Consultation ---
Date of Service May 08, 2023 Assessment & Plan (1) Encounter for pre-operative examination: Chart Review Chart Review: Acceptable Risk for Surgery and Patient NOT seen in Pre Admission Testing Consults Requested none History Surgery Operation Date: 05/08/23 07:45 Proposed Procedures p Incision and Drainage of Face/Submandibular Area - Kirill Mendoza DMD s Extraction of Tooth #31 - Kirill Mendoza DMD Height/Weight Height: 5 ft 5 in Weight: 56.7 kg Allergies Allergy/AdvReac Type Severity Reaction Status Date / Time Penicillins Allergy Mild Unknown Verified 05/06/23 15:20 aspartame AdvReac Unknown Migraine Verified 05/07/23 19:16 Medications Home Medications Medication Instructions Recorded Confirmed Last Taken albuterol sulfate 90 mcg/actuation 2 puff inhalation Q4H PRN 07/31/21 05/06/23 Unknown aerosol inhaler (ProAir HFA) shortness of breath or wheezing #8.5 grams acetaminophen 325 mg capsule 650 mg PO QID PRN Fever Or Pain 01/22/23 05/06/23 Unknown (Tylenol) ibuprofen 200 mg capsule 400 mg PO Q6H PRN Fever Or Pain 01/22/23 05/06/23 Unknown Active Medications Generic Name Dose Route Start Last Admin Trade Name Freq PRN Reason Stop Dose Admin Acetaminophen 650 mg 05/06/23 21:09 05/07/23 12:10 Acetaminophen 325 Mg Tab PO 06/05/23 21:08 650 mg Q4H PRN Administration pain (1-6)/fever Clindamycin Phosphate 600 mg in 50 mls @ 100 mls/hr 05/07/23 03:30 05/08/23 11:37 Cleocin/D5w IV 05/17/23 03:29 100 mls/hr Q8H ORACIO Administration Dexamethasone 6 mg/ Syringe 1.5 mls @ 1 mls/min 05/07/23 20:00 05/08/23 08:25 IV 06/06/23 19:59 1 mls/min Q6H ORACIO Administration Ketorolac Tromethamine 15 mg 05/06/23 21:09 05/07/23 22:46 Ketorolac Tromethamine 15 Mg/Ml Vial IV 05/11/23 21:08 15 mg Q6H PRN Administration Pain (7-10) Past Medical History Medical History (Updated 05/08/23 @ 12:11 by Samuel Mccarthy MD) Encounter for pre-operative examination Asthma Anxiety and depression Migraine, chronic, without aura Past Family History Family History Mother Adopted person Other Depression Dyslipidemia Gestational diabetes Hypertension Kidney disease Multiple gestation Past Surgical History Surgical History No history of previous surgery Social History Smoking Status: Current some day smoker Do You Dip or Chew Tobacco: No Hx Alcohol Use: Yes Alcohol type: beer, wine and hard liquor alcohol intake frequency: holidays/special occasions only Hx Substance Use: Yes substance use type: marijuana Last Used Substance: Days (ago) Physical Exam Vital Signs Last Vital Signs Temp 36.7 C 05/08/23 07:18 Pulse 80 05/08/23 07:18 Resp 15 05/08/23 07:18 BP 109/69 05/08/23 07:18 Pulse Ox 97 05/08/23 07:18 O2 Del Method Room Air 05/08/23 07:18 Testing Laboratory Results 05/08/23 07:18 05/08/23 07:18
[2023-05-08] MEDS ORDERED: KETAMINE HCL 10MG/ML SYR ONE (13:30)
[2023-05-08] MEDS ORDERED: ONDANSETRON INJ 2 MG/ML 2 ML VIAL ONE (13:39)
[2023-05-08] MEDS ORDERED: MIDAZOLAM HCL 1 MG/ML 2ML VIAL ONE (13:39)
[2023-05-08] MEDS ORDERED: diphenhydrAMINE 50 MG/ML VIAL ONE (13:39)
[2023-05-08] MEDS ORDERED: fentaNYL citrate PF 100 MCG/2 ML VIAL ONE ×2 (13:39→16:08)
[2023-05-08] MEDS ORDERED: PROPOFOL IV EMULSION 10 MG/ML 20 ML VIAL IV ONE (13:39)
[2023-05-08] MEDS ORDERED: LIDOCAINE 2% 2 ML VIAL/AMP(20MG/ML) INFIL ONE (13:39)
[2023-05-08] MEDS: LACTATED RINGER'S 1,000 ML IV SCH (13:44)
[2023-05-08] MEDS ORDERED: OXYMETAZOLINE 0.05% 30 ML BTL ONE (13:56)
[2023-05-08] MEDS ORDERED: fentaNYL citrate PF 100 MCG/2 ML VIAL IV PRN (15:02)
[2023-05-08] MEDS ORDERED: ATROPINE SULFATE 0.1 MG/ML 10ML SYR IV PRN (15:02)
[2023-05-08] MEDS ORDERED: ONDANSETRON INJ 2 MG/ML 2 ML VIAL IV PRN (15:02)
[2023-05-08] MEDS ORDERED: PROMETHAZINE HCL 6.25 MG in SODIUM CHLORIDE 0.9% 50 ML IV PRN (15:02)
[2023-05-08] MEDS ORDERED: ePHEDrine sulfate 50 MG/ML AMP IV PRN (15:02)
--- NOTE | 2023-05-08 15:15 | History & Physical Bridge Note ---
Date of Service May 08, 2023 History & Physical Bridge Note I have examined the patient, reviewed the History & Physical and in the interval since the performance of the History & Physical I have noted the following changes of clinical significance: no changes noted
[2023-05-08] MEDS ORDERED: ESMOLOL HCL INJ 10 MG/ML 10ML VIAL IV ONE (16:16)
[2023-05-08] MEDS ORDERED: NEOSTIGMINE METHYLSULFATE 1 MG/ML 10ML VIAL ONE (16:22)
[2023-05-08] MEDS ORDERED: GLYCOPYRROLATE 0.2 MG/ML VIAL ONE (16:22)
[2023-05-08] MEDS: CHLORHEXIDINE GLUCONATE 0.12% 480 ML MT ONE (16:24)
[2023-05-08] MEDS: BUPIVACAINE/EPINEPHRINE 0.5% 1:200,000 1.8 ML CARP ONE (16:25)
[2023-05-08] MEDS ORDERED: oxyCODONE HCL IR 5 MG TAB (IMMEDIATE RELEASE) PO PRN (16:28)
[2023-05-08] MEDS ORDERED: ACETAMINOPHEN 500 MG TAB PO PRN (16:28)
[2023-05-08] MEDS ORDERED: MoRPHine SULFATE 2 MG/ML CARP IV PRN (16:28)
--- NOTE | 2023-05-08 16:33 | Post Operative Brief Note ---
PG Immediate Post Op with CF Date of Surgery May 08, 2023 Pre & Post Diagnosis Operation Date: 05/08/23 07:45 Pre-Op Diagnosis: SEVERE DENTAL PAIN, TRISMUS, PERIAPICAL ABSCESS Post-Op Diagnosis: SEVERE DENTAL PAIN, TRISMUS, PERIAPICAL ABSCESS I identified the patient and participated in the time-out.: Yes Procedure Operation Date: 05/08/23 07:45 Actual Procedures p Incision and Drainage of Face/Submandibular Area - Kirill Mendoza DMD s Extraction of Tooth #31(Right) - Kirill Mendoza DMD Surgeon Kirill Mendoza DMD Computational [employer] Professor none Estimated Blood Loss 4 Findings Consistent with Post-Op Diagnosis once the mouth was opened there was a large floor of the mouth and mandibular space abscess Specimens Specimen Description: 1. Culture-Infection, right floor of mouth Complications none
--- NOTE | 2023-05-08 17:03 | Anesthesiology Progress Note ---
Date of Service May 08, 2023 Anesthesia Post Procedure Vital Signs Vital Signs: Temp Pulse Pulse Resp BP Pulse Ox O2 Del Method 05/08/23 16:55 73 14 141/84 H 94 Room Air 05/08/23 16:45 36.4 C L 96 H 18 119/72 97 Oxymask 05/08/23 13:38 37 C 66 18 103/64 100 Room Air 05/08/23 07:18 36.7 C 80 15 109/69 97 Room Air 05/07/23 20:52 37.4 C 89 16 97/57 L 99 Room Air O2 Flow Rate 05/08/23 16:55 05/08/23 16:45 6 05/08/23 13:38 05/08/23 07:18 05/07/23 20:52 Pain Intensity Right Face: Pain Intensity: 5 Transfer of Care Handoff Completed per policy Notes Mental Status: alert / awake / arousable and participated in evaluation Patient Amnestic to Procedure: Yes Nausea / Vomiting: adequately controlled Pain: adequately controlled Airway Patency, RR, SpO2: stable & adequate BP & HR: stable & adequate Hydration State: stable & adequate Anesthetic Complications: no major complications apparent and Pt Satisfied with anesthetic care
--- NOTE | 2023-05-08 17:37 | Hospitalist Progress Note ---
Date of Service May 08, 2023 Assessment & Plan (1) Abscess of submandibular region: Plan: Worsening right mandibular pain and severe trismus x 3 weeks Patient had procedure at [facility] weeks ago to have her right mandibular molar (tooth #31) removed, however it was unable to be extracted; discharged on a course of azithromycin Mild leukocytosis at 12.06 on arrival; however, patient recently completed a steroid taper prescribed by PCP; finished on 05/04. Leukocytosis now resolved Soft tissue neck CT revealed large multi loculated abscess deep to the right mandibular ramus; airway patent; prominent right cervical chain lymphadenopathy Hx of PCN allergy (hives, severe itching); patient also reports she had a similar reaction when given a cephalosporin Seen by OMFS here who recommended 2 days of IV antibiotics and now s/p I&D of large mouth floor and dental abscess as well as tooth extraction of #31 Trismus already improving -MRSA swab negative therefore no additional antibiotic coverage needed -Continue clindamycin 600 mg IV 3 times daily -Heat application and gentle jaw massage as needed -Acetaminophen 650 mg p.o. q4h as needed for pain 1-6 -Toradol 15 mg IV q6h as needed for pain 7-10 -OMFS added on Decadron for improvement in swelling and trismus -mild hyponatremia from poor po intake-give 2 L of NS at 125mL/hr -follow BMP (2) Trismus: Plan: This should improve after improvement in infection Tx as above (3) Asthma: Plan: Albuterol inhaler as needed-does have some mild wheezing post-op Plan Disposition: Continued stay, encourage po intake, pain control VTE PPx: SCDs Discussed her care with her mother at the bedside Admission and Anticipated Discharge Date Admission Date: May 06, 2023 Subjective Pt seen after return from PACU from dental abscess drainage and tooth extraction. Her mom is at the bedside. Pt very anxious, tearful. C/o a sore throat. Wants to go home but says he throat hurts too badly to swallow clear liquids yet wants to eat green beans and mashed potatoes. Physical Exam Constitutional: WD/WN, vitals as above Eyes: + anicteric sclerae ENMT: right buccal mucosa with packing in place Neck: + abnormal visual inspection (Mild swell ing right side of neck and mandible) Respiratory: normal respiratory effort, lungs clear to auscultation Cardiovascular: RRR, no murmur, no edema Chest (Breasts): Chest: normal inspection of chest Gastrointestinal (Abdomen): normal bowel sounds, soft, nontender, no hepatosplenomegaly Musculoskeletal: Extremities: extremities normal to inspection; no cyanosis and no clubbing Skin: no rashes, warm and dry Neurologic: moves all extremities and awake; no focal motor deficits Psychiatric: Orientation: alert Affect: + anxious affect, + tearful affect and + labile affect Lymphatic: no lymphedema Results & Data Results & Data Vital Signs (Past 12 Hours) Vital Signs Temp Pulse Pulse Resp BP Pulse Ox O2 Del Method 05/08/23 17:15 36.4 C L 100 H 16 118/72 94 Room Air 05/08/23 17:05 99 H 18 117/71 93 Room Air 05/08/23 16:55 73 14 141/84 H 94 Room Air 05/08/23 16:45 36.4 C L 96 H 18 119/72 97 Oxymask 05/08/23 15:15 36.7 C 72 16 109/66 94 Room Air 05/08/23 13:38 37 C 66 18 103/64 100 Room Air 05/08/23 07:18 36.7 C 80 15 109/69 97 Room Air O2 Flow Rate 05/08/23 17:15 05/08/23 17:05 05/08/23 16:55 05/08/23 16:45 6 05/08/23 15:15 05/08/23 13:38 05/08/23 07:18 Laboratory Results CBC,BMP reviewed PG Care Time/CCT Total # of Minutes Spent Total Time Spent with Patient: Total time spent is greater than 50% in coordination of care (as documented) at patient's floor/unit and/or counseling patient: Coding Level of Care Code 22599 SUB INP/OBS CARE 2/35MIN Diagnoses Abscess of submandibular region K12.2 Trismus R25.2 Asthma J45.909
[2023-05-08] MEDS: SODIUM CHLORIDE 0.9% 1,000 ML IV SCH (18:27)
[2023-05-08] MEDS: CHLORASEPTIC (PHENOL) 1.4% SOLN 180 ML BTL MT PRN (22:37)
[2023-05-09 08:18] LABS: Anion Gap 6 (3-11); BUN Creatinine Ratio 33.3 (10-20); Blood Urea Nitrogen 19 mg/dl (6-23); Calcium 8.9 mg/dl (8.6-10.3); Carbon Dioxide 24 mmol/L (21-32); Chloride 107 mmol/L (98-107); Creatinine Clr Calc Pharmacy 138.6 ml/min; Est GFR (African American) > 150.0 ml/min; Est GFR (Non-African American) 131.6 ml/min; Glucose 137 mg/dl (70-99(Fasting)); Potassium 4.4 mmol/L (3.5-5.1); Sodium 137 mmol/L (136-145)
--- NOTE | 2023-05-09 08:30 | Oral/Maxillofacial Progress Nt ---
Date of Service May 09, 2023 Assessment & Plan Admission and Anticipated Discharge Date Admission Date: May 08, 2023 Subjective Post Op infection evaluation 12 hours The infected area is less swollen and trismus improving Swelling is almost gone and the tissue is healing well No drainage is noted. Cultures pending Infection has responded very well to the antibiotics, extraction and the I and D. I requested that the patient continue with massage, heat and wound care. At this time the area has responded well to treatment. OK for D/C with oral antibiotics I will see in office on May 21 at 4:15 Results & Data Vital Signs (Past 12 Hours) Vital Signs Temp Pulse Resp BP Pulse Ox O2 Del Method 05/09/23 06:59 36.8 C 74 14 100/52 L 94 Room Air 05/09/23 04:27 36.5 C 84 16 96/49 L 96 Room Air 05/09/23 00:30 71 14 99/52 L 95 Room Air PG Care Time/CCT Total # of Minutes Spent Total Time Spent with Patient: Total time spent is greater than 50% in coordination of care (as documented) at patient's floor/unit and/or counseling patient: Coding Level of Care Code None
[2023-05-09] MEDS ORDERED: EPINEPHrine ADULT AUTO-INJECT 0.3 MG SYR IM PRN (10:13)
--- NOTE | 2023-05-09 10:44 | Discharge Summary ---
Discharge Summary Date of Service May 09, 2023 Notes For Next Care Provider Needs follow up on final wound culture results Medication Changes From Visit Added cefdinir 300mg po bid x 6 more days Added Flagyl 500mg po tid x 7 days Added hydrocodone/APAP prn Admission HPI Per Admitting Provider Daksha is a 22-year-old female with PMH of asthma, dyspareunia, anxiety and depression, and chronic migraine without aura. She presented for severe dental pain and difficulty opening her jaw x 3 weeks. Patient had a procedure at [facility] 3 weeks ago to have a tooth pulled; however, the tooth was unable to be removed despite 4 injections of Novocain. She was sent home on a course of azithromycin. Patient broke the tooth (right mandibular molar; tooth #31) approximately 2 years ago; however, she reports that she does not like going to the dentist, and has been avoiding having it pulled. The right mandibular pain and difficulty opening her jaw began the day after procedure 3 weeks ago. She rates her pain 4/10 at present; 7/10 at worst. Pain radiates down her right neck, and is tender to palpation. She also reports that she has sharp intermittent pain that radiates to her ear upon swallowing and turning her head. History of a right ruptured eardrum a couple months ago. The swelling in her right neck has gotten worse this past week. She has been taking 800 mg of ibuprofen q6h as needed for pain. No other regular medications on a daily basis. Patient has been tolerating liquids, but has had difficulty with solids; she reports she has been eating soup and yogurt. She denies recent injuries to the head/neck. Patient endorses social alcohol use with the last being on Thursday 05/04. She also reports that she vapes, and occasionally uses marijuana; no other recreational drug use or tobacco use. Patient notes that she has a penicillin allergy; her family is allergic, and she notes that she has had wheezing, hives, and itchiness and given penicillins/cephalosporins in the past. Patient's vitals are stable at time of admission. ED course: Toradol 15 mg IV Clindamycin 900 mg IV ROS: Patient endorses right mandibular pain, swelling at the right mandible, intermittent right ear pain with swallowing, nausea, and difficulty fully opening her jaw. Patient denies fever, chills, sweats, fainting, changes in vision/he aring/taste/smell, neck pain, throat swelling/closing, chest pain, SOB, abdominal pain, vomiting, diarrhea, dysuria, burning with urination, or numbness or tingling going down the arms or legs. Principal Dx & Hospital Course #1 = Principal Diagnosis (1) Abscess of submandibular region: Worsening right mandibular pain and severe trismus x 3 weeks Patient had procedure at [facility] 3 weeks ago to have her right mandibular molar (tooth #31) removed, however it was unable to be extracted; discharged on a course of azithromycin Mild leukocytosis at 12.06 on arrival; however, patient recently completed a steroid taper prescribed by PCP; finished on 05/04. Leukocytosis now resolved Soft tissue neck CT revealed large multi loculated abscess deep to the right mandibular ramus; airway patent; prominent right cervical chain lymphadenopathy Hx of PCN allergy (hives, severe itching, wheezing) when she took amoxicillin and diclixacillin; patient also reports she had a similar reaction when given a cephalosporin but she cannot recall names of medications Seen by OMFS here who recommended 2 days of IV antibiotics and now s/p I&D of large mouth floor and dental abscess as well as tooth extraction of #31 Trismus already improving, pain improving, afebrile Wound cx with Gram stain GPC, GPR,GNC, and GNR, culture pin point growth, pending at time of discharge Was treated with IV Clindamycin and IV decadron Gave a test dose of IV Ceftriaxone here and observed for allergic reaction-she had none Dc to home with cefdinir and Flagyl to cover for GPC,GNR, and anerobes x 7 more days MRSA swab negative therefore no additional antibiotic coverage needed Continue heat application and gentle jaw massage as needed Acetaminophen and hydrocodone, iburpofen prn pain F/u with OMFS in office on 05/21 Mild hyponatremia from poor po intake-gave 2 L of NS at 125mL/hr and Na+ normalized (2) Trismus: Improving after improvement in infection Tx as above (3) Asthma: Albuterol inhaler as needed-had some mild wheezing post-op which resolved on its own Plan Disposition: dc to home VTE PPx: SCDs Discharge Exam Constitutional WD/WN, vitals as above Eyes + anicteric sclerae Neck + abnormal visual inspection (Mild swelling right side of neck and mandible) Respiratory normal respiratory effort, lungs clear to auscultation Cardiovascular RRR, no murmur, no edema Chest (Breasts) Chest: normal inspection of chest Gastrointestinal (Abdomen) normal bowel sounds, soft, nontender, no hepatosplenomegaly Musculoskeletal Extremities: extremities normal to inspection; no cyanosis and no clubbing Skin no rashes, warm and dry Neurologic moves all extremities and awake; no focal motor deficits Psychiatric Orientation: alert and oriented x 3 Affect: euthymic affect Lymphatic no lymphedema Updated Medication List Medication Instructions Recorded Confirmed Type albuterol sulfate 90 mcg/actuation 2 puff inhalation Q4H PRN 07/31/21 05/06/23 Rx aerosol inhaler (ProAir HFA) shortness of breath or wheezing #8.5 grams acetaminophen 325 mg capsule 650 mg PO QID PRN Fever Or Pain 01/22/23 05/06/23 History (Tylenol) ibuprofen 200 mg capsule 400 mg PO Q6H PRN Fever Or Pain 01/22/23 05/06/23 History acetaminophen 500 mg tablet 1,000 mg (2 x 500 mg) PO Q8H PRN 05/09/23 Rx (Tylenol Extra Strength) pain #30 tabs cefdinir 300 mg capsule 300 mg PO BID #12 caps 05/09/23 Rx epinephrine 0.3 mg/0.3 mL 0.3 mg (0.3 mL) IM UD PRN 05/09/23 Rx injection, auto-injector (EpiPen anaphylaxis #2 ea 2-Jim) hydrocodone 5 mg-acetaminophen 325 1 tab PO Q4H PRN pain #14 tabs 05/09/23 Rx mg tablet metronidazole 500 mg tablet 500 mg PO Q8H 7 days #21 tabs 05/09/23 Rx ondansetron HCl 8 mg tablet 8 mg PO Q8H PRN nausea and 05/09/23 Rx vomiting #10 tabs phenol 1.4 % mucosal aerosol spray 1 spray MT Q2H PRN sore throat 05/09/23 Rx (Sore Throat (phenol)) #177 mL Hospital Stay Data Consultations 05/06/23 18:50 ED Decision to Admit Stat 05/06/23 21:09 Consult Otolaryngology (Head and Neck) Routine Procedures Performed Operation Date: 05/08/23 07:45 Actual Procedures p Incision and Drainage of Face/Submandibular Area - Kirill Mendoza DMD s Extraction of Tooth #31(Right) - Kirill Mendoza DMD Diagnostic Imagining Performed 05/06/23 16:49 CT neck soft tissues [CT soft tissue neck w con] Stat Pending Results Patient Have Any Pending Studies at Discharge: No Discharge Instructions Given to Patient (Per Discharging Provider) Please continue taking the antibiotics called cefdinir twice a day and metronidazole three times a day for 7 more days. Do not drink alcohol while taking metronidazole. ADDITIONAL ACTIVITY RECOMMENDATIONS: * [place] teeth after every meal. It is very important to keep your mouth clean to prevent infection. * Starting tonight rinse with the Peridex as directed then 2 x a day * it is very important to keep well hydrated, this prevents fever and possible dry socket pain SPECIAL CARE INSTRUCTIONS: *It is not uncommon that between day 2-4 that your swelling will be at its worst this is very normal, do not be alarmed. * Keep ice on the side of your face for the next 24 to 36 hours. This will help keep the swelling down. * After 36 hours, apply heat (hot water bottle or heating pad) for the next two days, as often as possible. * Tomorrow start rinsing your mouth with 1/2 teaspoon salt in 8 ounces warm water. This rinse should be used every 4-6 hours. * You may experience slight nausea. To prevent this, never take your medication on an empty stomach. If nauseated, take small sips of seun dacia until you feel better; then you may start on applesauce and toast. * Some swelling is common. It should gradually decrease within 4-5 days. * A certain amount of bleeding is to be expected. It is often possible to control mild oozing by placing folded gauze over the area and biting down for 30 minutes. If you are unable to control excessive bleeding, call Dr Mendoza at [phone] * You may experience some discomfort for a few days. If pain or swelling increases, Call Dr Mendoza * Return to the office for a follow up check up on: SaturdayMay 21 at 4:15 * office address--[address] phone # [phone] Total Time Total Time Spent Total Time Spent (In Minutes): 35 min Coding Level of Care Code 27615 INP/OBS DISCH >30 MIN Diagnoses Abscess of submandibular region K12.2 Trismus R25.2 Asthma J45.909
[2023-05-09] MEDS: cefTRIAXone SODIUM 1,000 MG in DEXTROSE 5 % MINI-B 50 ML IV ONE (11:42)
--- NOTE | 2023-05-14 10:02 | Operative Report ---
PG Post Operative Report Pre & Post Diagnosis Operation Date: 05/08/23 07:45 Pre-Op Diagnosis: SEVERE DENTAL PAIN, TRISMUS, PERIAPICAL ABSCESS Post-Op Diagnosis: SEVERE DENTAL PAIN, TRISMUS, PERIAPICAL ABSCESS I identified the patient and participated in the time-out.: Yes Procedure Operation Date: 05/08/23 07:45 Actual Procedures p Incision and Drainage of Face/Submandibular Area - Kirill Mendoza DMD s Extraction of Tooth #31(Right) - Kirill Mendoza DMD Surgeon Kirill Mendoza DMD [place] none Estimated Blood Loss 4 Findings Consistent with Post-Op Diagnosis Specimens Culture Drains none Complications none Indications severe facial infection with limited jaw opening not responding to oral antibiotics Description of Procedure Daksha is able to open her mouth slightly more and the swelling has localized to the medial side of the lower jaw and submandibular area. I will plan I&D this afternoon with extraction of # 31. I will be able to get a better examination of the mouth and oral cavity once we get her sedated. OR today Consent signed reviewed with Daksha and her mother p Incision and Drainage floor of the mouth and submandibular space Abscess; - Kirill Mendoza DMD ICD 10 K12.2 , L03.211 CPT 00670 I & D of deep abscess of the right floor of the mouth and vestibular space [id number] extraction of tooth # 31 Once cleared for surgery general anesthesia was achieved, the eyes were protected by the anesthesia dept criteria. A time out was take for patient ID, antibiotics, equipment and position verification once all agreed the procedure began. Once she was sedated we were able to open her mouth to discover a large Floor of the mouth abscess and mandibular space swelling. Local anesthesia using Marcaine with a vasoconstrictor ( 1.8 ml per site) given into right mandibular area A throat pack was placed after the oral cavity was irrigated with saline. Once a surgical level of anesthesia was obtained and the local anesthesia was given time for the blocks the surgery was started. I turned my attention to the infection which was located in the floor of the mouth ,right vestibule,right retromolar area Incision and Drainage Using a 15 blade an incision was made in the right floor of the mouth lateral to the submandibular duct. Once the incision was made a lot of pus extruded from the site. This drainage was cultured for anaerobic and aerobic bacteria. A curved hemostat was carefully placed inferior to the submandibular space and posterior to the mandibular space. i To gain access to the pocket of pus in the retromolar area another incision was made in the vestibule. This allowed further drainage to escape. I palpated the face and floor of the mouth and no further drainage was expressed. The area was irrigated with at least 100 ml of NS solution. I now turned my attention to remove the # 31 tooth. Lower # 31 The full thick Muco-periosteal flap was made on the facial aspect from #retromolar area to area 29. The flap was reflected to expose the the subperiosteal space the bone adjacent to # 31. The rongeur was used to remove bone, the tooth was removed with a 301 elevator, the mental nerve was intact, there was a large amount of granulation tissue on the apex and some more pus that was expressed. I inspected the sites to insure all bleeding was controlled. I removed the throat pack and suctioned the throat. A gauze pressure dressings was placed. All instrument and sponge count was correct. The patient was allowed to awake from the anesthesia. Once full awake the anesthesia tube was removed and the patient was taken to the recovery room with all vital sign stable. The patient tolerated the surgery very well. I will follow the patient in my office, Rx and instructions will be given upon discharge. Daksha will be followed in my office in 10 days I attest to the content of the Intraoperative Record and any orders documented therein. Any exceptions are noted below.
--- NOTE | 2023-05-15 05:06 | Coding Query ---
CODING QUERY To promote full compliance with coding requirements relating to patient care, provider participation is requested in all cases of service representative uncertainty. Please assist us with the question(s) below: Coding Question(s): Pt adm for dental abscess and difficulty opeing jaw. . 3 weeks post attempted dental extraction . 's progress note 05/09 documented postoperative infection. Please check below the phrase that describes the dental infection. Thanks for your help. Leno Johnson [facility] Physician's Response(s): ____x____ Patient was admitted with postoperative dental infection Patient did not have a postoperative dental infection Other/ please document: Principal Diagnosis: "that condition established after study, to be chiefly responsible for occasioning the admission of the patient to the hospital for care." Co-Existing Principal Diagnosis: "when two or more diagnoses equally meet the criteria for principal diagnosis as determined by the circumstances of admission, diagnostic work up, and/or therapy provided, and the Alphabetic Index, Tabular List, or another coding guideline does not provide sequencing direction, any one of the diagnoses may be sequenced first." "When the physician has documented what appears to be a current diagnosis in the body of the record, but has not included the diagnosis in the final diagnostic statement, the physician should be asked whether the diagnosis should be added." (Source Coding Clinic 2 QTR90. p3-4) JULIANN
== END 2023-05-09 14:50 | disposition home or self-care (01) | DRG 857 ==
LOC: 3W 16:20 → ED 16:20 → SUATTDRO 19:29 → 3W 20:33